=== PATIENT | male | born 1950 | race Caucasian/White ===

== ENCOUNTER 2018-10-21 13:28 | Emergency (ER) | payer OTHER ==
--- NOTE | 2018-10-21 14:45 | RAD REPORT ---
EXAM DESCRIPTION: CT - Head Brain Wo Cont - 10/21/2018 2:36 pm CLINICAL HISTORY: Syncope, weakness, dizziness COMPARISON: None. TECHNIQUE: Axial 5 mm thick images of the head were obtained without IV contrast. All CT scans are performed using dose optimization technique as appropriate and may include automated exposure control or mA/KV adjustment according to patient size. FINDINGS: No intracranial hemorrhage, mass, edema or shift of mid-line structures. No acute infarcti on changes seen. No abnormal extra-axial fluid collections. Ventricles are normal. Asymmetry is creat ed due to head tilt. Mastoid air cells and visualized portions of the paranasal sinuses are clear. No acute bony findings. IMPRESSION: Negative non-contrast CT head examination.
[2018-10-21 15:04] LABS: Absolute Lymphocytes (CBC) 0.5 K/uL (0.7-4.9); Absolute Monocytes 0.5 K/uL (0.1-1.3); Absolute Neutrophil 4.4 K/uL (1.8-8.0); Basophils % 0.3 % (0-1.3); Eosinophils % 4.6 % (0-4.4); Hematocrit 43.1 % (39.6-49.0); MPV 9.1 fL (7.6-11.3); Monocytes % 9.1 % (3.3-12.3)
--- NOTE | 2018-10-21 15:15 | RAD REPORT ---
EXAM DESCRIPTION: RAD - Chest Single View - 10/21/2018 2:52 pm CLINICAL HISTORY: Shortness of breath COMPARISON: None. TECHNIQUE: AP portable chest image was obtained 1438 hours . FINDINGS: Lungs are heavily fibrotic. Diaphragm is flattened. No peripheral mass or consolidation se en. No vascular engorgement. Heart size is normal. Fullness along the right side of the mediastinum a nd hilum is believed to be tortuous aorta. No measurable pleural effusion and no pneumothorax. No acu te bony abnormality seen. No acute aortic finding. IMPRESSION: Prominent COPD pattern with no acute finding identifiable. Extent of chronic disease could mask early interstitial edema or infiltrate.
[2018-10-21 15:23] LABS: BUN Blood Urea Nitrogen 16 mg/dL (7-18); Glucose Level 79 mg/dL (74-106); Potassium 4.2 mmol/L (3.5-5.1); Sodium Level 138 mmol/L (136-145)
[2018-10-21 15:29] LABS: Bicarbonate 41 mmol/L (21-32)
--- NOTE | 2018-10-21 17:21 | EDPHYS ---
Physician Documentation [facility] Name: Turner Martin Age: 68 yrs Sex: Male : 1950 Arrival Date: 10/21/2018 Time: 13:32 Bed 20 Private MD: ED Physician Aly Guillen HPI: 10/21 17:08 This 68 yrs old Male presents to ER via EMS with complaints of multiple falls.kdr 17:08 The patient was sent [place] due to multiple falls and syncopal episodes in the last kdr few weeks. Apparently the patient had hit his head recently and they were concerned that he may have an undiagnosed injury A call from the [facility] indicated that they would some preliminary x-rays prior to departure but according to the patient, this did not occur. After my initial evaluation, I did not feel that any plain films were appropriate based on the exam and lack of findings. The patient indicated that on at least one occasion, the incontinent of urine but he stated that prior to that syncope, he had tried to get up to go to the bathroom. Onset: The symptoms/episode began/occurred 2 week(s) ago. Severity of symptoms: At their worst the symptoms were mild moderate in the emergency department the symptoms have improved markedly. The patient has experienced similar episodes in the past, several times. The patient has been recently seen by a physician: AT the [facility]. Historical: - Allergies: 13:41 No Known Allergies; em - PMHx: 13:41 COPD; Asthma; em - PSHx: 13:41 G tube; Tonsillectomy; Adenoids; em - Immunization history:: Adult Immunizations up to date. - Social history:: Smoking status: Patient/guardian denies using tobacco. - Ebola Screening: : Patient negative for fever greater than or equal to 101.5 degrees Fahrenheit, and additional compatible Ebola Virus Disease symptoms Patient denies exposure to infectious person Patient denies travel to an Ebola-affected area in the 21 days before illness onset No symptoms or risks identified at this time. ROS: 17:08 Constitutional: Negative for fever, chills, and weight loss, Eyes: Negative for injury, kdr pain, redness, and discharge, Neck: Negative for injury, pain, and swelling, Cardiovascular: Negative for chest pain, palpitations, and edema, Respiratory: Negative for shortness of breath, cough, wheezing, and pleuritic chest pain, Abdomen/GI: Negative for abdominal pain, nausea, vomiting, diarrhea, and constipation, Back: Negative for injury and pain, : Negative for injury, bleeding, discharge, and swelling, MS/Extremity: Negative for injury and deformity, Skin: Negative for injury, rash, and discoloration, Psych: Negative for depression, anxiety, suicide ideation, homicidal ideation, and hallucinations, Allergy/Immunology: Negative for hives, rash, and allergies, Endocrine: Negative for neck swelling, polydipsia, polyuria, polyphagia, and marked weight changes, Hematologic/Lymphatic: Negative for swollen nodes, abnormal bleeding, and unusual bruising. 17:08 Neuro: Positive for syncope, weakness, Negative for altered mental status, dizziness, headache, seizure activity, tingling, tinnitus, tremor, visual changes. Exam: 17:08 Constitutional: This is a well developed, well nourished patient who is awake, alert, kdr and in no acute distress. Head/Face: Normocephalic, atraumatic. Eyes: Pupils equal round and reactive to light, extra-ocular motions intact. Lids and lashes normal. Conjunctiva and sclera are non-icteric and not injected. Cornea within normal limits. Periorbital areas with no swelling, redness, or edema. Neck: Trachea midline, no thyromegaly or masses palpated, and no cervical lymphadenopathy. Supple, full range of motion without nuchal rigidity, or vertebral point tenderness. No Meningismus. Chest/axilla: Normal chest wall appearance and motion. Nontender with no deformity. No lesions are appreciated. The patient spine is veryu kyphotic - especially the upper spine Cardiovascular: Regular rate and rhythm with a normal S1 and S2. No gallops, murmurs, or rubs. Normal PMI, no JVD. No pulse deficits. Respiratory: Lungs have equal breath sounds bilaterally, clear to auscultation and percussion. No rales, rhonchi or wheezes noted. No increased work of breathing, no retractions or nasal flaring. Abdomen/GI: Soft, non-tender, with normal bowel sounds. No distension or tympany. No guarding or rebound. No evidence of tenderness throughout. Skin: Warm, dry with normal turgor. Normal color with no rashes, no lesions, and no evidence of cellulitis. MS/ Extremity: Pulses equal, no cyanosis. Neurovascular intact. Full, normal range of motion. Neuro: Awake and alert, GCS 15, oriented to person, place, time, and situation. Cranial nerves II-XII grossly intact. Motor strength 5/5 in all extremities. Sensory grossly intact. Cerebellar exam normal. Normal gait. Psych: Awake, alert, with orientation to person, place and time. Behavior, mood, and affect are within normal limits. 17:08 Back: pain, is absent, ROM is decreased, with all movement, normal spinal alignment noted, CVA tenderness, is absent, vertebral tenderness, is not appreciated, muscle spasm. Vital Signs: 13:41 BP 155 / 90; Pulse 84; Resp 20; Temp 98.1(O); Pulse Ox 96% on 2 lpm NC; Weight 45.81 em kg; Height 5 ft. 6 in. (167.64 cm); Pain 7/10; 15:00 BP 137 / 84; Pulse 79; Resp 18; Pulse Ox 99% on 2 lpm NC; em 16:27 BP 140 / 86; Pulse 86; Resp 18; Pulse Ox 99% on 2 lpm NC; em 17:49 BP 137 / 87; Pulse 78; Resp 16; Pulse Ox 99% on 2 lpm NC; em 13:41 Body Mass Index 16.30 (45.81 kg, 167.64 cm) em MDM: 17:08 Data reviewed: vital signs, nurses notes, lab test result(s), radiologic studies. kdr Counseling: I had a detailed discussion with the patient and/or guardian regarding: the historical points, exam findings, and any diagnostic results supporting the discharge/admit diagnosis, lab results, radiology results, the need for outpatient follow up. 17:21 Patient medically screened. kdr 10/21 14:10 Order name: CBC with Diff; Complete Time: 17:05 em 10/21 14:10 Order name: Basic Metabolic Panel; Complete Time: 17:05 em 10/21 14:10 Order name: Head Brain Wo Cont CT; Complete Time: 17:05 em 10/21 14:11 Order name: Chest Single View XRAY; Complete Time: 17:05 em Administered Medications: No medications were administered Disposition: 10/21/18 17:21 Discharged to Home. Impression: Syncope and collapse, Other slipping, tripping and stumbling and falls. - Condition is Stable. - Discharge Instructions: Syncope, [id number], Fall Prevention in the Home, Avre-wm-Cvuv, Head Injury, Adult, Dgjh-[id number]-Narp. - Medication Reconciliation Form, Thank You Letter form. - Follow up: Private Physician; When: 2 - 3 days; Reason: If symptoms return, Further diagnostic work-up, Recheck today's complaints, Continuance of care, Re-evaluation by your physician. - Problem is new. - Symptoms have improved. Signatures: Dispatcher [employer] EDMS Aly Guillen MD MD kdr David Saleh, ONION TIER ONION TIER em Mary Frances, RN RN iw Corrections: (The following items were deleted from the chart) 17:56 17:21 10/21/2018 17:21 Discharged to Home. Impression: Syncope and collapse; Other iw slipping, tripping and stumbling and falls. Condition is Stable. Forms are Medication Reconciliation Form, Thank You Letter, Antibiotic Education, Prescription Opioid Use. Follow up: Private Physician; When: 2 - 3 days; Reason: If symptoms return, Further diagnostic work-up, Recheck today's complaints, Continuance of care, Re-evaluation by your physician. Problem is new. Symptoms have improved. kdr
--- NOTE | 2018-10-21 17:21 | ER ---
Nurse's Notes [facility] Name: Turner Martin Age: 68 yrs Sex: Male : 1950 Arrival Date: 10/21/2018 Time: 13:32 Bed 20 Private MD: Diagnosis: Syncope and collapse;Other slipping, tripping and stumbling and falls Presentation: 10/21 13:37 Presenting complaint: EMS states: [facility] and SOB, reports em falling last Wednesday and blacking out after ambulating to the restroom with O2. Transition of care: patient was not received from another setting of care. Onset of symptoms was October 15, 2018. Risk Assessment: Do you want to hurt yourself or someone else? Patient reports no desire to harm self or others. Initial Sepsis Screen: Does the patient meet any 2 criteria? No. Patient's initial sepsis screen is negative. Does the patient have a suspected source of infection? No. Patient's initial sepsis screen is negative. Care prior to arrival: None. 13:37 Method Of Arrival: EMS: [facility] em 13:38 Acuity: CARLA 3 hb Triage Assessment: 13:41 General: Appears in no apparent distress. comfortable, Behavior is calm, cooperative. em Pain: Complains of pain in head. Historical: - Allergies: 13:41 No Known Allergies; em - PMHx: 13:41 COPD; Asthma; em - PSHx: 13:41 G tube; Tonsillectomy; Adenoids; em - Immunization history:: Adult Immunizations up to date. - Social history:: Smoking status: Patient/guardian denies using tobacco. - Ebola Screening: : Patient negative for fever greater than or equal to 101.5 degrees Fahrenheit, and additional compatible Ebola Virus Disease symptoms Patient denies exposure to infectious person Patient denies travel to an Ebola-affected area in the 21 days before illness onset No symptoms or risks identified at this time. Screenin:45 Abuse screen: Denies threats or abuse. Nutritional screening: No deficits noted. em Tuberculosis screening: No symptoms or risk factors identified. Fall Risk None identified. Assessment: 13:42 General: Appears in no apparent distress. comfortable, Behavior is calm, cooperative, em Denies fever. Pain: Complains of pain in head Pain currently is 8 out of 10 on a pain scale. Neuro: Level of Consciousness is awake, alert, obeys commands, Oriented to person, place, time, situation, Moves all extremities. Speech is normal, Facial symmetry appears normal, Reports dizziness. Cardiovascular: Reports syncope, Heart tones S1 S2 present Capillary refill < 3 seconds Patient's skin is warm and dry. Respiratory: Airway is patent Respiratory effort is even, unlabored, Respiratory pattern is regular, symmetrical, Breath sounds are clear bilaterally. GI: Abdomen is flat, Reports nausea. Derm: Skin is intact, is healthy with good turgor, Skin is pink, warm \T\ dry. Musculoskeletal: Capillary refill < 3 seconds, Range of motion: intact in all extremities, Kyphosis noted. 13:55 Reassessment: I agree with previous assessment. hb 14:00 Reassessment: Patient appears in no apparent distress at this time. Patient and/or iw family updated on plan of care and expected duration. Pain level reassessed. Patient is alert, oriented x 3, equal unlabored respirations, skin warm/dry/pink. I agree with above assessment by David Saleh LVN. 14:53 Reassessment: provider at bedside. em 16:27 Reassessment: Patient appears in no apparent distress at this time. Patient and/or em family updated on plan of care and expected duration. Pain level reassessed. Patient is alert, oriented x 3, equal unlabored respirations, skin warm/dry/pink. Patient states symptoms have improved. 17:43 Reassessment: Patient and/or family updated on plan of care and expected duration. Pain em level reassessed. Patient is alert, oriented x 3, equal unlabored respirations, skin warm/dry/pink. Patient states symptoms have improved. 17:48 Reassessment: provider at bedside discussing POC. em Vital Signs: 13:41 BP 155 / 90; Pulse 84; Resp 20; Temp 98.1(O); Pulse Ox 96% on 2 lpm NC; Weight 45.81 em kg; Height 5 ft. 6 in. (167.64 cm); Pain 7/10; 15:00 BP 137 / 84; Pulse 79; Resp 18; Pulse Ox 99% on 2 lpm NC; em 16:27 BP 140 / 86; Pulse 86; Resp 18; Pulse Ox 99% on 2 lpm NC; em 17:49 BP 137 / 87; Pulse 78; Resp 16; Pulse Ox 99% on 2 lpm NC; em 13:41 Body Mass Index 16.30 (45.81 kg, 167.64 cm) em ED Course: 13:32 Patient arrived in ED. em1 13:37 David Saleh LVN is Primary Nurse. em 13:41 Arm band placed on. em 13:45 Patient has correct armband on for positive identification. Placed in gown. Bed in low em position. Call light in reach. Side rails up X2. bus driver/monitor on. Pulse ox on. NIBP on. 13:47 Aly Guillen MD is Attending Physician. kdr 14:03 Triage completed. hb 14:35 CT completed. Patient tolerated procedure well. Patient moved to CT. Patient moved back from CT. 14:35 Head Brain Wo Cont CT In Process Unspecified. EDMS 14:50 Initial lab(s) drawn, by me, sent to lab. Inserted saline lock: 20 gauge in right dh3 forearm, using aseptic technique. Blood collected. 14:52 Chest Single View XRAY In Process Unspecified. EDMS 17:50 No provider procedures requiring assistance completed. IV discontinued, intact, em bleeding controlled, No redness/swelling at site. Pressure dressing applied. Administered Medications: No medications were administered Outcome: 17:21 Discharge ordered by . kdr 17:55 Discharged to home via wheelchair, with family. iw 17:55 Condition: good 17:55 Discharge instructions given to patient, family, Instructed on discharge instructions, follow up and referral plans. Demonstrated understanding of instructions, follow-up care. 17:56 Patient left the ED. iw Signatures: Dispatcher [employer] EDMS Aly Guillen MD MD kdr Jones, Susan David Saleh, MARLENY GELATIN DYNAMITE PACKING OPERATOR em Mary Frances, RN Jos Houser em1 Joslyn Argueta, MICHELLE MARTINEZ Estefani Holt [facility]
== END 2018-10-21 17:56 | disposition home or self-care (01) ==
LOC: ER 13:28
DX: R55 Syncope and collapse (principal); W01.0XXA Fall on same level from slipping, tripping and stumbling without subsequent striking against object, initial encounter; Y93.89 Activity, other specified; Y92.89 Other specified places as the place of occurrence of the external cause; J44.9 Chronic obstructive pulmonary disease, unspecified
CPT/HCPCS: 36415; 70450; 71045; 80048; 85025; 99285

== ENCOUNTER 2019-08-20 19:46 | Emergency (ER) | payer OTHER ==
[2019-08-20] MEDS ORDERED: NA CHLORIDE 0.9% 1,000 ML ONE ×3 (20:08→22:42)
--- NOTE | 2019-08-20 20:13 | RAD REPORT ---
EXAM DESCRIPTION: CT - Ct Stroke Brain Wo Cont - 08/20/2019 8:04 pm CLINICAL HISTORY: Confusion/alteration of awareness TECHNIQUE: Computed axial tomography of the head was obtained. All CT scans are performed using dose optimization technique as appropriate and may include automated exposure control or mA/KV adjustment according to patient size. FINDINGS: An intracranial bleed is not seen . The ventricles are normal in caliber. No extra-axial fluid collection is noted. 5 millimeter right frontal lobe calcification is nonspecific. It could be associated with prior infec tion. Fluid within the sinuses/ mastoids is not seen. IMPRESSION: No acute intracranial abnormality is seen. If patient's symptoms persist MRI of the bra in would be recommended. Dr Dyer of the emergency room was notified at 7:49 p.m. August 20, 2019
[2019-08-20 20:14] LABS: Absolute Lymphocytes (CBC) 0.4 K/uL (0.7-4.9); Basophils % 0.2 % (0-1.3); Hematocrit 35.5 % (39.6-49.0); Lymphocytes % 5.7 % (15.3-44.8); MPV 8.5 fL (7.6-11.3); Protime INR 0.93; RBC Red Blood Cell Count 3.43 M/uL (4.33-5.43)
--- NOTE | 2019-08-20 20:16 | RAD REPORT ---
EXAM DESCRIPTION: Luis Single View08/20/2019 8:11 pm CLINICAL HISTORY: COPD/CVA COMPARISON: October 2018 FINDINGS: Lungs are moderately hyperaerated The lungs appear clear of acute infiltrate. The heart is normal size IMPRESSION: COPD without visualization of an acute abnormality
[2019-08-20 20:23] LABS: BUN Blood Urea Nitrogen 22 mg/dL (7-18); Glucose Level 183 mg/dL (74-106); Sodium Level 134 mmol/L (136-145)
[2019-08-20 20:24] LABS: Bicarbonate > 45 mmol/L (21-32); Potassium 5.9 mmol/L (3.5-5.1)
[2019-08-20 20:45] LABS: Blood Morphology Comment NOT SEEN (NOT SEEN); Platelet Estimate ADEQ; Urine White Blood Cell Casts OK
[2019-08-20] MEDS ORDERED: IPRATROPIUM BROM 0.5MG/2.5ML ONE (20:50)
[2019-08-20] MEDS ORDERED: ALBUTEROL 2.5 MG/3 ML NEB SOL ONE (20:50)
[2019-08-20] MEDS ORDERED: METHYLPREDNISOLONE 125 MG INJ ONE (20:53)
[2019-08-20] MEDS ORDERED: NA CHLORIDE 0.9% 250 ML ONE (20:54)
[2019-08-20] MEDS ORDERED: D50W 25 GM/50 ML SYRINGE/VIAL IV ONE (20:54)
[2019-08-20] MEDS ORDERED: AZITHROMYCIN 500 MG INJ IVPB ONE (20:54)
[2019-08-20] MEDS ORDERED: CEFTRIAXONE/SWI 1gm 1 GM/10 ML SYR ONE (20:55)
[2019-08-20 21:06] LABS: Arterial Blood Carboxyhemoglob 1.3 % (0-1.5); Blood Gas Oxyhemoglobin 91.6 % (94-97); Blood O2 Saturation 93.2 % (92-98.5)
[2019-08-20] MEDS ORDERED: CALCIUM GLUCONATE 1 GM IVPB 2 GM/100 ML BAG IV ONE (21:08)
[2019-08-20] MEDS ORDERED: INSULIN -REGULAR HUMAN 50 UNIT/0.5 ML ML ONE (21:09)
--- NOTE | 2019-08-20 21:28 | ER ---
Nurse's Notes [facility] Name: Turner Martin Age: 68 yrs Sex: Male : 1950 Arrival Date: 08/20/2019 Time: 19:51 Bed 3 Private MD: Diagnosis: Hyperkalemia;Chronic obstructive pulmonary disease, unspecified;Respiratory failure, unspecified with hypercapnia Presentation: 08/20 19:37 Presenting complaint: EMS states: Called for patient who was unresponsive per patient's lp1 sister; Per EMS, patient with pinpoint pupils not responding, Narcan given with no change; Per sister, Patient last seen normal at 1200 today, hx of TIA. 19:37 Transition of care: patient was not received from another setting of care. Onset of lp1 symptoms was August 20, 2019 at 12:00. Risk Assessment: Do you want to hurt yourself or someone else? Unable to obtain. Initial Sepsis Screen: Does the patient meet any 2 criteria? RR > 20 per min. Altered Mental Status. HR > 90 bpm. Does the patient have a suspected source of infection? If YES to both, name of provider notified: Cassia Dyer MD Care prior to arrival: Medication(s) given: Narcan 1mg IN IV initiated. 18 GA, in the left antecubital area, Glucose check: 98 Oxygen administered. via nasal cannula. 19:37 Method Of Arrival: EMS: [facility] 1 19:37 Acuity: CARLA 2 lp1 Triage Assessment: 19:40 General: Appears slender, cachectic, Behavior is unresponsive. Neuro: Pupils are lp1 sluggish. Respiratory: Airway is patent Respiratory effort is even. Derm: Skin is fragile, is thin, with poor turgor Skin is dry, Skin is pale. Historical: - Allergies: 20:45 No Known Allergies; lp1 - Home Meds: 20:32 albuterol sulfate 90 mcg/actuation Inhl HFAA 2 puffs every 6 hours [Active]; Albuterol bb Nebulizer every 6 hours [Active]; aspirin 81 mg Oral chew 1 tab once daily [Active]; Calcium 500 + D 500 mg(1,250mg) -200 unit oral tab [Active]; guaifenesin Oral [Active]; Jevity 1.5 Colin 0.06 gram-1.5 kcal/mL oral liqd [Active]; levothyroxine 88 mcg tab 1 tab once daily [Active]; losartan 25 mg oral tab 1 tab once daily [Active]; multivitamin oral cap [Active]; omeprazole 40 mg Oral cpDR 1 cap once daily [Active]; Refresh Tears 0.5 % ophthalmic drop as needed [Active]; simethicone 80 mg Oral chew [Active]; tiotropium bromide inhalation inhalation [Active]; trazodone 50 mg Oral tab 1 tab nightly [Active]; - PMHx: 20:45 Asthma; COPD; Emphysema; Tremors; O2 dependent- 2L; Throat Cancer; Prostate cancer; lp1 - PSHx: 20:45 G-tube; lp1 - Immunization history:: Adult Immunizations up to date. - Coronavirus screen:: The patient has NOT traveled to [place] in the past 14 days. The patient has NOT had contact with known/suspected case of Coronavirus?. - Social history:: Patient/guardian denies using alcohol, street drugs, The patient lives with family, Smoking status: Patient/guardian denies using tobacco, the patient reports quitting approximately 9 years ago. - Family history:: not pertinent. - Ebola Screening: : No symptoms or risks identified at this time. Screenin:45 Patient has been NPO before screening. The patient is not alert, or is unable to follow lp1 commands. Bedside swallow screening discontinued. Patient kept NPO until cleared by Speech Therapy or Physician. 20:42 Abuse screen: Denies threats or abuse. Denies injuries from another. Nutritional lp1 screening: Difficulty chewing/swallowing? Yes G-tube in place from hx of throat cancer. Tuberculosis screening: No symptoms or risk factors identified. Fall Risk Total [place] Fall Scale indicates High Risk Score (45 or more points). Fall prevention measures have been instituted. Side Rails Up X 2 Placed Close to Nursing Station Frequent Obs/Assessments Occuring Family Present and informed to notify staff if the need to leave the bedside As available patient and family educated on Fall Prevention Program and Strategies. Assessment: 20:00 General: Appears slender, malnourished, cachectic, Behavior is unresponsive. Pain: lp1 Unable to use pain scale. Patient is unresponsive. Neuro: Level of Consciousness is unresponsive, Pupils are sluggish, tremors noted; hx of per patient's sister. Cardiovascular: Capillary refill < 3 seconds in bilateral fingers toes Patient's skin is warm and dry. Rhythm is sinus rhythm. Respiratory: Airway is patent Trachea midline Respiratory effort is labored, Respiratory pattern is tachypnea Breath sounds are diminished bilaterally. the patient has moderate shortness of breath. GI: Abdomen is flat, PEG tube in place, clamped. : No deficits noted. EENT: No deficits noted. Derm: Skin is fragile, is thin, with poor turgor Skin is dry, Skin is pale, Skin temperature is warm. Musculoskeletal: Range of motion: ROM limited in neck; Per patient's sister, patient had surgery that left him with limited ROM in neck. 20:45 Reassessment: RT placing patient on BiPAP at this time; 14/7, Rate 14, 40% O2. lp1 21:45 General: Behavior is unresponsive. Neuro: tremors noted; Patient not opening eyes,. lp1 Respiratory: Airway is patent Respiratory effort is even. 22:29 Reassessment: Report given to MICHELLE Gauthier at [place] for patient transfer; Sister at 1 bedside, aware of transfer. 22:29 Neuro: Level of Consciousness is unresponsive, No change from initial arrival to ED. lp1 22:29 Cardiovascular: Capillary refill < 3 seconds in bilateral fingers toes. lp1 22:46 Reassessment: EMS at bedside for transfer. lp1 Vital Signs: 19:50 BP 157 / 88; Pulse 93; Resp 24; Temp 97.4(TE); Pulse Ox 95% on 2 lpm NC; Weight 46.36 lp1 kg (R); 20:30 BP 148 / 77; Pulse 92; Resp 20; Pulse Ox 96% on 2 lpm NC; lp1 21:00 BP 96 / 74; Pulse 94; Resp 20; Pulse Ox 99% on 40% BiPAP; lp1 22:00 BP 100 / 72; Pulse 94; Resp 15; Pulse Ox 100% on 40% BiPAP; lp1 22:45 BP 104 / 76; Pulse 92; Resp 17; Pulse Ox 99% on 40% BiPAP; lp1 [place] Coma Score: 19:50 Eye Response: none(1). Verbal Response: none(1). Motor Response: withdraws from lp1 pain(4). Total: 6. NIH Stroke Scale Scores: 19:45 NIHSS Score: 35 lp1 ED Course: 19:51 Patient arrived in ED. jb4 19:51 Cassia Dyer MD is Attending Physician. ma2 19:52 Maintain EMS IV. Dressing intact. Good blood return noted. Site clean \T\ dry. Gauge \T\ lp 1 site: 18 g IV to L AC. 19:56 X-ray(s) taken. lp1 20:00 Patient has correct armband on for positive identification. Placed in gown. Bed in low lp1 position. Side rails up X2. legal recovery specialist on. Pulse ox on. NIBP on. 20:00 Arm band placed on right wrist. lp1 20:11 EKG done, by ED staff, reviewed by Cassia Dyer MD. johanna 20:16 Kathy Linda, RN is Primary Nurse. lp1 20:24 Notified ED physician of a critical lab result(s). Potassium of 5.9, CO2 >45. Dr johanna Levin notified. 20:30 Triage completed. lp1 20:45 Inserted saline lock: 20 gauge in right antecubital area, using aseptic technique. oe Blood collected. 21:30 Wade cath inserted, using sterile technique, Patient tolerated well. ds4 22:17 No provider procedures requiring assistance completed. lp1 23:08 Patient transferred, IV remains in place. lp1 Administered Medications: 20:10 Drug: NS 0.9% 1000 ml Route: IV; Rate: 1 bolus; Site: left antecubital; jb4 20:43 Follow up: IV Status: Completed infusion; IV Intake: 1000ml lp1 20:15 Drug: D50W 100 ml Route: IVP; Site: left antecubital; lp1 22:30 Follow up: Response: No adverse reaction lp1 20:50 Drug: Albuterol - atroVENT (3:1) (2.5 mg - 0.5 mg) 3 ml Route: Nebulizer; lp1 22:00 Follow up: Response: No adverse reaction lp1 20:55 Drug: Rocephin 1 grams Route: IV; Rate: calculated rate; Site: left antecubital; lp1 21:34 Follow up: IV Status: Completed infusion; IV Intake: 10ml lp1 20:55 Drug: NS 0.9% 1000 ml Route: IV; Rate: 1 bolus; Site: left antecubital; lp1 21:38 Follow up: IV Status: Completed infusion; IV Intake: 1000ml lp1 20:59 Drug: MethylPrednisoLONE 125 mg Route: IVP; Site: left antecubital; lp1 21:32 Follow up: Response: No adverse reaction lp1 21:18 Drug: Insulin Regular Human 10 units {Co-Signature: jb4 (Chung Lopez RN).} Route: IVP; lp1 Site: left antecubital; 22:30 Follow up: Response: No adverse reaction lp1 21:20 Drug: Calcium Gluconate 2 grams Route: IVPB; Infused Over: 60 mins; Site: right lp1 antecubital; 22:45 Follow up: IV Status: Completed infusion lp1 21:20 Drug: AZITHromycin 500 mg Route: IVPB; Infused Over: 1 hrs; Site: left antecubital; lp1 22:30 Follow up: IV Status: Completed infusion; IV Intake: 250ml lp1 23:00 Drug: NS 0.9% 1000 ml Route: IV; Rate: 125 ml/hr; Site: right antecubital; lp1 23:15 Follow up: IV Status: Infusion continued upon transfer lp1 Intake: 20:43 IV: 1000ml; Total: 1000ml. lp1 21:34 IV: 10ml; Total: 1010ml. lp1 21:38 IV: 1000ml; Total: 2010ml. lp1 22:30 IV: 250ml; Total: 2260ml. lp1 Outcome: 21:28 ER care complete, transfer ordered by . ma2 22:18 critical lp1 22:18 Instructed on the need for transfer. 23:09 Transferred by ground EMS to [facility] Transfer form completed. lp1 X-rays sent w/ patient. 23:13 Patient left the ED. lp1 NIH Stroke Scale - NIH Stroke Score Date: 08/20/2019 Time: 19:45 Total Score = 35 1a. Level of Consciousness (LOC) - 3(Unresponsive) 1b. Level of Consciousness (LOC) (Year \T\ Age) - 2(Neither) 1c. LOC Commands (Open \T\ Closes Eyes/American History Professor) - 2(Neither) 2. Best Gaze (Lateral Gaze Paresis) - 2(Forced deviation) 3. Visual Field Loss - 3(Bilateral hemianopia) 4. Facial Palsy - 0(Normal) 5a. Left Arm: Motor (10-second hold) - 3(No effort against gravity) 5b. Right Arm: Motor (10-second hold) - 3(No effort against gravity) 6a. Left Leg: Motor (5-second hold - always test supine) - 3(No effort against gravity) 6b. Right Leg: Motor (5-second hold - always test supine) - 3(No effort against gravity) 7. Limb Ataxia (finger/nose \T\ heel/bright - test with eyes open) - 2(Present in two limbs) 8. Sensory Loss (pinprick arms/legs/face) - 2(Severe to total loss) 9. Best Language: Aphasia (description/naming/reading) - 3(Mute, global aphasia) 10. Dysarthria (speech clarity - read or repeat words) - 2(Severe) 11. Extinction and Inattention (visual/tactile/auditory/spatial/personal) - 2(Profound) Initials: lp1 Signatures: Tila York RN RN bb Kathy Linda RN RN lp1 Terry Luo ds4 Chung Lopez RN RN jb4 Roddy Sauer Mohammad, MD MD ma2 Chung Lopez RN jb4 Corrections: (The following items were deleted from the chart) 20:46 20:45 PMHx: TIA; lp1 lp1 23:13 22:29 Reassessment: Report given to MICHELLE Gauthier at [place] for patient transfer; lp1 Sister at bedside, aware of transfer lp1
--- NOTE | 2019-08-20 21:29 | EDPHYS ---
Physician Documentation [facility] Name: Turner Martin Age: 68 yrs Sex: Male : 1950 Arrival Date: 08/20/2019 Time: 19:51 Bed 3 Private MD: ED Physician Cassia Dyer HPI: 08/20 21:24 This 68 yrs old Male presents to ER via EMS with complaints of Altered Mental ma2 Status. 21:24 The patient presents with decreased mental status. Onset: The symptoms/episode ma2 began/occurred gradually, 1 day(s) ago. Associated signs and symptoms: Pertinent negatives: blurred vision, chest pain. The patient has experienced similar episodes in the past. hx of pancreatic cancer and throat cancer and prostate ca, copd on home O2. here with sob and wheezes and AMS . Historical: - Allergies: 20:45 No Known Allergies; lp1 - Home Meds: 20:32 albuterol sulfate 90 mcg/actuation Inhl HFAA 2 puffs every 6 hours [Active]; Albuterol bb Nebulizer every 6 hours [Active]; aspirin 81 mg Oral chew 1 tab once daily [Active]; Calcium 500 + D 500 mg(1,250mg) -200 unit oral tab [Active]; guaifenesin Oral [Active]; Jevity 1.5 Colin 0.06 gram-1.5 kcal/mL oral liqd [Active]; levothyroxine 88 mcg tab 1 tab once daily [Active]; losartan 25 mg oral tab 1 tab once daily [Active]; multivitamin oral cap [Active]; omeprazole 40 mg Oral cpDR 1 cap once daily [Active]; Refresh Tears 0.5 % ophthalmic drop as needed [Active]; simethicone 80 mg Oral chew [Active]; tiotropium bromide inhalation inhalation [Active]; trazodone 50 mg Oral tab 1 tab nightly [Active]; - PMHx: 20:45 Asthma; COPD; Emphysema; Tremors; O2 dependent- 2L; Throat Cancer; Prostate cancer; lp1 - PSHx: 20:45 G-tube; lp1 - Immunization history:: Adult Immunizations up to date. - Coronavirus screen:: The patient has NOT traveled to [place] in the past 14 days. The patient has NOT had contact with known/suspected case of Coronavirus?. - Social history:: Patient/guardian denies using alcohol, street drugs, The patient lives with family, Smoking status: Patient/guardian denies using tobacco, the patient reports quitting approximately 9 years ago. - Family history:: not pertinent. - Ebola Screening: : No symptoms or risks identified at this time. ROS: 21:24 Unable to obtain ROS due to altered mental status. ma2 21:28 ENT: Negative for injury, pain, and discharge. ma2 Exam: 21:24 Head/Face: Normocephalic, atraumatic. Cardiovascular: Regular rate and rhythm with a ma2 normal S1 and S2. No gallops, murmurs, or rubs. Normal PMI, no JVD. No pulse deficits. Abdomen/GI: Soft, non-tender, with normal bowel sounds. No distension or tympany. No guarding or rebound. No evidence of tenderness throughout. Back: No spinal tenderness. No costovertebral tenderness. Full range of motion. 21:24 Respiratory: moderate respiratory distress is noted, Respirations: labored breathing, Breath sounds: wheezing: expiratory is scattered, Respiratory rate: 15 21:24 Neuro: Orientation: unable to test, ams. Vital Signs: 19:50 BP 157 / 88; Pulse 93; Resp 24; Temp 97.4(TE); Pulse Ox 95% on 2 lpm NC; Weight 46.36 lp1 kg (R); 20:30 BP 148 / 77; Pulse 92; Resp 20; Pulse Ox 96% on 2 lpm NC; lp1 21:00 BP 96 / 74; Pulse 94; Resp 20; Pulse Ox 99% on 40% BiPAP; lp1 22:00 BP 100 / 72; Pulse 94; Resp 15; Pulse Ox 100% on 40% BiPAP; lp1 22:45 BP 104 / 76; Pulse 92; Resp 17; Pulse Ox 99% on 40% BiPAP; lp1 NIH Stroke Scale Scores: 19:45 NIHSS Score: 35 lp1 [place] Coma Score: 19:50 Eye Response: none(1). Verbal Response: none(1). Motor Response: withdraws from lp1 pain(4). Total: 6. MDM: 19:51 Patient medically screened. ma2 21:24 Differential Diagnosis: alcohol intoxication, hypoglycemia, overdose, TIA, COPD ma2 exacerbation, respiratory failure and hyperkalemia . Data reviewed: vital signs, nurses notes. Counseling: I had a detailed discussion with the patient and/or guardian regarding: the historical points, exam findings, and any diagnostic results supporting the discharge/admit diagnosis, the presence of at least one elevated blood pressure reading (>120/80) during this emergency department visit, the need to transfer to another facility, he is a [facility] and family request [facility] transfer for continuity of care, on Bipap, respiration improved. Response to treatment: the patient's symptoms have markedly improved after treatment. 08/20 20:05 Order name: Basic Metabolic Panel wv 08/20 20:05 Order name: CBC with Diff wv 08/20 20:05 Order name: Protime (+inr) wv 08/20 20:05 Order name: Ptt, Activated [facility] 08/20 20:11 Order name: Blood Culture Adult (2) [facility] 08/20 20:11 Order name: UDS [facility] 08/20 20:11 Order name: Alcohol Level [facility] 08/20 20:11 Order name: Salicylate [facility] 08/20 20:11 Order name: Acetaminophen [facility] 08/20 20:16 Order name: CBC with Automated Diff; Complete Time: 21:12 EDSC 08/20 20:17 Order name: Protime (+INR); Complete Time: 20:28 EDSC 08/20 20:17 Order name: PTT, Activated Partial Thromb; Complete Time: 20:28 EDSC 08/20 20:26 Order name: Basic Metabolic Panel; Complete Time: 20:28 EDSC 08/20 20:27 Order name: Alcohol Serum/Plasma; Complete Time: 20:28 [facility] 08/20 19:58 Order name: CT Stroke Brain w/o Contrast wv 08/20 20:05 Order name: Stroke CXR 1 View wv 08/20 20:24 Order name: CT; Complete Time: 20:28 EDSC 08/20 20:24 Order name: RAD; Complete Time: 20:28 EDSC 08/20 20:28 Order name: ABG [facility] 08/20 20:48 Order name: CBC Smear Scan; Complete Time: 21:12 EDMS 08/20 21:07 Order name: ABG Arterial Blood Gas; Complete Time: 21:12 EDSC 08/20 21:10 Order name: Acetaminophen Level; Complete Time: 21:12 EDSC 08/20 21:15 Order name: Salicylates Level EDSC 08/20 21:26 Order name: Urine Dipstick--Ancillary (enter results) wv 08/20 21:36 Order name: glucometer results - FOR PT WITH NO ID [facility] 08/20 21:37 Order name: Urine Dipstick-Ancillary [facility] 08/20 21:54 Order name: Urine Drug Screen [facility] 08/20 21:57 Order name: Glucose, Ancillary(No Armband) EDSC 08/20 21:58 Order name: ABG Arterial Blood Gas EDSC 08/20 22:43 Order name: Glucose, Ancillary Testing EDSC 08/20 20:05 Order name: EKG; Complete Time: 20:08 wv 08/20 20:05 Order name: Accucheck; Complete Time: 20:16 wv 08/20 20:05 Order name: Cardiac monitoring; Complete Time: 20:16 wv 08/20 20:05 Order name: EKG - Nurse/Tech; Complete Time: 20:16 wv 08/20 20:05 Order name: IV Saline Lock; Complete Time: 20:18 wv 08/20 20:05 Order name: Labs collected and sent; Complete Time: 20:18 wv 08/20 20:05 Order name: NPO; Complete Time: 20:18 wv 08/20 20:05 Order name: O2 Per Protocol; Complete Time: 20:18 wv 08/20 20:05 Order name: O2 Sat Monitoring; Complete Time: 20:18 wv 08/20 20:05 Order name: Stroke Swallow Screen; Complete Time: 20:18 wv 08/20 20:15 Order name: Urine Dipstick-Ancillary (obtain specimen); Complete Time: 21:36 [facility] 08/20 20:29 Order name: BIPAP in2 Administered Medications: 20:10 Drug: NS 0.9% 1000 ml Route: IV; Rate: 1 bolus; Site: left antecubital; jb4 20:43 Follow up: IV Status: Completed infusion; IV Intake: 1000ml lp1 20:15 Drug: D50W 100 ml Route: IVP; Site: left antecubital; lp1 22:30 Follow up: Response: No adverse reaction lp1 20:50 Drug: Albuterol - atroVENT (3:1) (2.5 mg - 0.5 mg) 3 ml Route: Nebulizer; lp1 22:00 Follow up: Response: No adverse reaction lp1 20:55 Drug: Rocephin 1 grams Route: IV; Rate: calculated rate; Site: left antecubital; lp1 21:34 Follow up: IV Status: Completed infusion; IV Intake: 10ml lp1 20:55 Drug: NS 0.9% 1000 ml Route: IV; Rate: 1 bolus; Site: left antecubital; lp1 21:38 Follow up: IV Status: Completed infusion; IV Intake: 1000ml lp1 20:59 Drug: MethylPrednisoLONE 125 mg Route: IVP; Site: left antecubital; lp1 21:32 Follow up: Response: No adverse reaction lp1 21:18 Drug: Insulin Regular Human 10 units {Co-Signature: jb4 (Chung Lopez RN).} Route: IVP; 1 Site: left antecubital; 22:30 Follow up: Response: No adverse reaction lp1 21:20 Drug: Calcium Gluconate 2 grams Route: IVPB; Infused Over: 60 mins; Site: right lp1 antecubital; 22:45 Follow up: IV Status: Completed infusion lp1 21:20 Drug: AZITHromycin 500 mg Route: IVPB; Infused Over: 1 hrs; Site: left antecubital; 1 22:30 Follow up: IV Status: Completed infusion; IV Intake: 250ml lp1 23:00 Drug: NS 0.9% 1000 ml Route: IV; Rate: 125 ml/hr; Site: right antecubital; 1 23:15 Follow up: IV Status: Infusion continued upon transfer lp1 Disposition: 08/20/19 21:28 Transfer ordered to [facility]. Diagnosis are Hyperkalemia, Chronic obstructive pulmonary disease, unspecified, Respiratory failure, unspecified with hypercapnia. - Reason for transfer: Higher level of care. - Accepting physician is [facility]\. - Condition is Stable. - Problem is new. - Symptoms are unchanged. NIH Stroke Scale - NIH Stroke Score Date: 08/20/2019 Time: 19:45 Total Score = 35 1a. Level of Consciousness (LOC) - 3(Unresponsive) 1b. Level of Consciousness (LOC) (Year \T\ Age) - 2(Neither) 1c. LOC Commands (Open \T\ Closes Eyes/Helicopter Specialist) - 2(Neither) 2. Best Gaze (Lateral Gaze Paresis) - 2(Forced deviation) 3. Visual Field Loss - 3(Bilateral hemianopia) 4. Facial Palsy - 0(Normal) 5a. Left Arm: Motor (10-second hold) - 3(No effort against gravity) 5b. Right Arm: Motor (10-second hold) - 3(No effort against gravity) 6a. Left Leg: Motor (5-second hold - always test supine) - 3(No effort against gravity) 6b. Right Leg: Motor (5-second hold - always test supine) - 3(No effort against gravity) 7. Limb Ataxia (finger/nose \T\ heel/bright - test with eyes open) - 2(Present in two limbs) 8. Sensory Loss (pinprick arms/legs/face) - 2(Severe to total loss) 9. Best Language: Aphasia (description/naming/reading) - 3(Mute, global aphasia) 10. Dysarthria (speech clarity - read or repeat words) - 2(Severe) 11. Extinction and Inattention (visual/tactile/auditory/spatial/personal) - 2(Profound) Initials: lp1 Signatures: Dispatcher [employer] EDTila Zuñiga RN RN bb Kathy Linda RN RN lp1 Chung Lopez, RN RN jb4 Alyssa Rodarte mt, Mohammad, MD MD ma2 Chung Lopez RN jb4 Corrections: (The following items were deleted from the chart) 20:46 20:45 PMHx: TIA; lp1 lp1 23:13 21:28 08/20/2019 21:28 Transfer ordered to [facility]. lp1 Diagnosis is Hyperkalemia; Chronic obstructive pulmonary disease, unspecified; Respiratory failure, unspecified with hypercapnia. Reason for transfer: Higher level of care. Accepting physician is [facility]\. Condition is Stable. Problem is new. Symptoms are unchanged. ma2
[2019-08-20 21:36] LABS: Urine Blood TRACE (NEG); Urine Glucose NEGATIVE (NEG); Urine Protein NEGATIVE (NEG)
[2019-08-20 21:53] LABS: Barbiturates NEGATIVE (NEGATIVE); Benzodiazepines NEGATIVE (NEGATIVE); Cocaine NEGATIVE (NEGATIVE); METHAMPHETAM NEGATIVE (NEGATIVE); Methadone NEGATIVE (NEGATIVE); Opiates NEGATIVE (NEGATIVE); Phencyclidine NEGATIVE (NEGATIVE); THC Cannibis NEGATIVE (NEGATIVE)
[2019-08-20 21:57] LABS: Arterial Blood Carboxyhemoglob 1.3 % (0-1.5); Blood Gas Oxyhemoglobin 95.5 % (94-97); Blood O2 Saturation 97.3 % (92-98.5)
[2019-08-20 23:34] VITALS: TEMP 97.4
[2019-08-20 23:39] VITALS: BP 104/76; O2SAT 99
--- NOTE | 2019-08-21 08:10 | EKG ---
Test Date: 2019-08-20 Test Time: 20:11:06 Commercial Producer: [employer] MEASUREMENT RESULTS: Intervals: Rate: 89 NE: 142 QRSD: 106 QT: 382 QTc: 464 [place]: P: 68 NE: 142 QRS: 30 T: 58 INTERPRETIVE STATEMENTS: Normal sinus rhythm Incomplete right bundle branch block Borderline ECG No previous ECG available for comparison Electronically Signed On 08-21-19 08:09:10 INTERLINE CLERK by Wilfrido Boone
== END 2019-08-20 23:13 ==
LOC: ER 19:46
DX: J44.9 Chronic obstructive pulmonary disease, unspecified (principal); J96.92 Respiratory failure, unspecified with hypercapnia; E87.5 Hyperkalemia; Z85.21 Personal history of malignant neoplasm of larynx; Z85.46 Personal history of malignant neoplasm of prostate; Z79.82 Long term (current) use of aspirin
CPT/HCPCS: 96365; 96367; 96361; 96368; 93005; 87040 ×2; 85025; 80048; 36415; 80320; 80329 ×2; 85610; 82947 ×2; 80307 ×8; 85730; 81003; 70450; 71045; 94640; 82805 ×2; 94660; 51702; 96375; 99285; J0456; J0610; J0696; J7030 ×4; J2930